=== PATIENT | female | born 1960 | race Caucasian/White ===

== ENCOUNTER → 2017-02-22 | Outpatient (CLI) | payer BC | END | disposition home or self-care (01) | LOC: C.PAPS 14:31 | PROVIDERS: ATTEND Obstetrics & Gynecology | DX: N95.2 Postmenopausal atrophic vaginitis (principal) ==

== ENCOUNTER → 2017-09-02 | Outpatient (CLI) | payer BC ==
--- NOTE | 2017-09-05 15:19 | MAMMOGRAPHY REPORT ---
BILATERAL DIGITAL SCREENING MAMMOGRAM TOMOSYNTHESIS WITH CAD: 09/02/2017 CLINICAL HISTORY: Routine screening. TECHNIQUE: Breast tomosynthesis in addition to standard 2D mammography was performed. Current study was also evaluated with a Computer Aided Detection (CAD) system. COMPARISON: Comparison is made to exams dated: 08/31/2016 mammogram, 08/25/2015 mammogram, 4 mammogram, 08/21/2013 mammogram, 05/19/2011 mammogram, and 01/26/2010 mammogram - [facility]. BREAST COMPOSITION: There are scattered areas of fibroglandular density in both breasts. FINDINGS: There is a focal asymmetry with associated calcifications in the left upper inner quadrant posteriorly measuring at least 15 mm in size, for which spot compression tomosynthesis views, spot m agnification views, and possible breast ultrasound are recommended for further evaluation. The remainder of both breasts are stable compared to prior exams, without suspicious masses, calcific ations, or areas of architectural distortion noted. There are stable changes from bilateral reductio n mammoplasty. Other scattered benign-appearing calcifications and bilateral nodularity are not sign ificantly changed. 2 adjacent biopsy marker clips are again noted within the right upper inner quadr ant. IMPRESSION: ACR BI-RADS CATEGORY 0: INCOMPLETE EVALUATION: NEED ADDITIONAL IMAGING EVALUATION Left breast asymmetry and associated calcifications, for which additional imaging evaluation is recom mended. The patient will be called to schedule an appointment. Approximately 10% of breast cancers are not detected with mammography. A negative mammographic report should not delay biopsy if a clinically suggestive mass is present. Casandra Sinha M.D. ah/:09/02/2017 16:18:46 Chief Airline Radio Operator: Thomas Harman RT(R)(M), [facility] [address] [facility] letter sent: Addl Imaging 0 BI-RADS Code: ACR BI-RADS Category 0: Incomplete Evaluation: Need Additional Imaging Evaluation
== END | disposition home or self-care (01) ==
LOC: C.MAMM 13:25
PROVIDERS: ATTEND Obstetrics & Gynecology
DX: Z12.31 Encounter for screening mammogram for malignant neoplasm of breast (principal); N64.9 Disorder of breast, unspecified; R92.0 Mammographic microcalcification found on diagnostic imaging of breast

== ENCOUNTER → 2017-09-14 | Outpatient (CLI) | payer BC ==
--- NOTE | 2017-09-14 16:03 | MAMMOGRAPHY REPORT ---
UNILATERAL LEFT DIGITAL DIAGNOSTIC MAMMOGRAM AND TARGETED LEFT ULTRASOUND: 09/14/2017 CLINICAL HISTORY: 57-year-old woman with a history of bilateral reduction mammoplasty called back fro m screening mammography for an asymmetry with associated microcalcifications in the upper inner poste rior left breast. TECHNIQUE: Spot magnification left CC and ML views were obtained. COMPARISON: Comparison is made to exams dated: 09/02/2017 mammogram, 08/31/2016 mammogram, 08/25/2015 mammogram, 08/22/2014 mammogram, 08/21/2013 mammogram, and 05/19/2011 mammogram - [facility]. BREAST COMPOSITION: There are scattered areas of fibroglandular density in the left breast. FINDINGS: The spot magnification views of the left breast demonstrate a grouping of round and puncta te Branden calcifications spanning approximately 18 mm in the upper inner far posterior left breast, w ith associated lobulated focal asymmetry. The microcalcifications have increased comparing to prior mammograms although the asymmetry appears somewhat similar to prior mammograms. Further evaluation w ith ultrasound was performed. Targeted ultrasound was performed in the upper inner quadrant of the left breast. In the 11:00 axis, 7 cm from the nipple, there is a parallel multilobulated hypoechoic and anechoic solid versus cystic mass with internal punctate reflectors likely representing the calcification seen mammographically. Accurate measurements are difficult to obtain on ultrasound but the area of lobulations measures james roximately 22.8 x 3.9 x 14.0 mm. This could represent focal fibrocystic change although DCIS cannot be completely excluded given the increasing microcalcifications. Definitive characterization with an ultrasound-guided core biopsy is recommended. IMPRESSION: ACR BI-RADS CATEGORY 4: SUSPICIOUS, TARGETED ULTRASOUND ACR BI-RADS CATEGORY 4: SUSPICIO US 1. Ultrasound-guided core needle biopsy is recommended for an indeterminate multilobulated 22 mm hyp oechoic and anechoic mass with associated grouped microcalcification in the 11:00 left breast, 7 cm f rom the nipple. This correlates with the mammographic findings of a focal asymmetry with associated calcification seen in the left breast. Specimen radiography would also be useful to ensure inclusion of the microcalcifications within the samples. These results and recommendations were discussed with the patient at the time of the exam. She will call our office to schedule the appointment after the holidays. Approximately 10% of breast cancers are not detected with mammography. A negative mammographic report should not delay biopsy if a clinically suggestive mass is present. Jeni Louie M.D. ay/:09/14/2017 11:18:29 Quantity Surveyor: Thomas FRAGOSO)(Tuyet), [facility] letter sent: Abnormal 4/5 BI-RADS Code: ACR BI-RADS Category 4: Suspicious Ultrasound BI-RADS: ACR BI-RADS Category 4: Suspici ous
== END | disposition home or self-care (01) ==
LOC: C.MAMM 09:23
PROVIDERS: ATTEND Obstetrics & Gynecology
DX: R92.0 Mammographic microcalcification found on diagnostic imaging of breast (principal); N64.89 Other specified disorders of breast

== ENCOUNTER → 2017-10-26 | Outpatient (CLI) | payer BC ==
--- NOTE | 2017-10-26 14:17 | Discharge Instructions ---
Discharge Instructions Procedure Procedure Date: Oct 26, 2017. Reason for visit: Left Mass. Discharge Discharge Date: Oct 26, 2017. Discharge Diagnosis: status post breast biopsy Instructions Activity Recommendations: Additional Limitations (see below) Return to School/Work: no limitations Recommended Home Diet: No Limitations Provider Instructions: ACTIVITY RECOMMENDATIONS: * No lifting, pushing, pulling or exercising the affected side for three days. RETURN TO SCHOOL/WORK: * You may return to work/school after the procedure, but do not perform any strenuous activities for 24 to 48 hours. MEDICATIONS: * Tylenol (two 325 mg) every four to six hours if needed for mild pain (if not allergic to Tylenol). DIET: * Resume previous diet. SPECIAL CARE INSTRUCTIONS: * Keep biopsy site dry for 24 hours. May shower after 24 hours, but do not soak (bathe) incision. * May remove Tegaderm (plastic patch) tomorrow AFTER showering. * Leave the steri-strips on for one week. Allow the steri-strips to fall off by themselves. If not off after one week, you may remove them. You may place a Bandaid crosswise over the strips, if desired. * Apply ice 10 minutes on and 10 minutes off as needed. * Wear a bra at bedtime to sleep more comfortably for 2-3 days. * Your referring physician should have the results after approximately 5 to 7 business days. * Call for unusual bleeding, fever, drainage, etc or if you have any questions call during normal business hours or after hours call Dr Sinha, . FOLLOW UP VISIT: Follow-up with Referring Physician as scheduled. [employer] Recommendations: Call your doctor if: * Temperature above 101 degrees * Pain not relieved by pain medicine ordered * There is increased drainage or redness from any incision * You have any unanswered questions or concerns. Your Doctors Instructions noted above were prepared by provider Casandra Sinha. Patient Signature Section: Patient Instructions Signature Page Estefani Peter Patient (or Guardian) Signature/Date: I have read and understand the instructions given to me by my caregivers. Caregiver/RN/Doctor Signature/Date: The above-named patient and/or guardian has received patient instructions on this date. + Original Patient Signature Page (only) stays with chart. Please make copy for patient.
--- NOTE | 2017-10-26 15:38 | MAMMOGRAPHY REPORT ---
THIS REPORT HAS BEEN AMENDED. ULTRASOUND GUIDED BIOPSY LEFT BREAST: 10/26/2017 CLINICAL HISTORY: Left 11:00 breast mass with associated calcifications. PATIENT CONSENT: The procedure, risks and benefits were discussed with the patient and informed writt en consent was obtained. A timeout was performed immediately prior to the procedure. PROCEDURE DESCRIPTION: With ultrasound guidance, aseptic technique, and lidocaine as the local anesth etic (1% lidocaine to anesthetize the skin and 1% lidocaine with epinephrine to anesthetize the deepe r tissues), the mass of concern was sampled 3 times with a 14-gauge Achieve biopsy needle. Immediate ly thereafter, with ultrasound guidance, aseptic technique, and lidocaine as the local anesthetic, a metallic localizer clip was placed at the biopsy site. Direct pressure was applied to the site immed iately post procedure and hemostasis was achieved. Postprocedure unilateral mammograms were performe d to confirm placement of the clip in the expected location of the breast mass. A specimen radiograp h was also performed, which shows 1-2 possible faint calcifications within the samples. The patient tolerated the procedure without complication. She was given wound care instructions. The specimens w ere sent to pathology for analysis. COMPARISON: Comparison is made to exams dated: 09/14/2017 mammogram, 09/14/2017 ultrasound, 7 mammogram, 08/31/2016 mammogram, 08/25/2015 mammogram, and 08/22/2014 mammogram - [facility]. IMPRESSION: ULTRASOUND GUIDED BIOPSY Ultrasound guided core needle biopsy of the left 11:00 breast mass, with clip placement. The patient will receive pathology results from her referring provider. Pending benign pathology results, recom mend follow-up diagnostic tomosynthesis mammograms and possible ultrasound of the left breast in 6 mo nths. Casandra Sinha M.D. ah/:10/26/2017 14:20:43 Grab Setter: Lashay Johnson, [facility] AMENDMENT: 10/26/2017 Casandra Sinha M.D. The patient returned to the Breast Center later the same day after the biopsy, due to bleeding at the biopsy site. By the time patient returned to the breast center, she was having no further episodes of bleeding. She was noted to have bruising and mild swelling at the biopsy site. Ultrasound of the region showed mild heterogeneity of the superficial soft tissues without a focal hematoma evident. He r Steri-Strips and bandages were replaced, and she was told to call or return to the breast center if she had any further episodes of bleeding or other concerns.
--- NOTE | 2017-10-26 15:42 | MAMMOGRAPHY REPORT ---
UNILATERAL LEFT DIGITAL DIAGNOSTIC MAMMOGRAM TOMOSYNTHESIS: 10/26/2017 CLINICAL HISTORY: Status post left breast biopsy. TECHNIQUE: Breast tomosynthesis in addition to standard 2D mammography was performed. Postprocedura l left CC and ML tomosynthesis images including C views were obtained. COMPARISON: Comparison is made to exams dated: 10/26/2017 ultrasound biopsy, 09/14/2017 mammogram, ultrasound, 09/02/2017 mammogram, 08/31/2016 mammogram, and 08/25/2015 mammogram - [facility]. BREAST COMPOSITION: There are scattered areas of fibroglandular density in the left breast. FINDINGS: A new biopsy marker clip is seen at the site of the biopsied mass and calcifications in th e left 11:00 breast. No significant postbiopsy hematoma is seen. IMPRESSION: POST PROCEDURE IMAGING FOR MARKER PLACEMENT New biopsy marker clip status post left breast biopsy. Pathology results are pending. Pending benig n pathology results, recommend follow-up diagnostic tomosynthesis mammograms and possible ultrasound of the left breast in 6 months. Approximately 10% of breast cancers are not detected with mammography. A negative mammographic report should not delay biopsy if a clinically suggestive mass is present. Casandra Sinha M.D. /:10/26/2017 14:34:48 Stamp Pad Finisher: Lashay Johnson, [facility] BI-RADS Code: Post Procedure Imaging For Marker Placement
== END | disposition home or self-care (01) ==
LOC: C.MAMM 13:38
PROVIDERS: ATTEND Obstetrics & Gynecology
DX: N63.20 Unspecified lump in the left breast, unspecified quadrant (principal); N60.12 Diffuse cystic mastopathy of left breast; N64.9 Disorder of breast, unspecified

== ENCOUNTER → 2018-05-01 | Outpatient (CLI) | payer BC ==
--- NOTE | 2018-05-01 15:43 | MAMMOGRAPHY REPORT ---
UNILATERAL LEFT DIGITAL DIAGNOSTIC MAMMOGRAM TOMOSYNTHESIS WITH CAD: 05/01/2018 CLINICAL HISTORY: 58-year-old woman presents for follow-up in the left breast. She was initially note d to have a focal asymmetry and associated calcification in the upper inner posterior left breast for which a probable sonographic correlate was identified and ultimately biopsied with ultrasound gabbie gonzalez on 10/26/2017, which yielded benign pathology results. Although a calcification was felt to be note d within the specimen during biopsy, the pathology report did not comment on calcifications and the p ho presents for follow-up. She returned with a small amount of bleeding immediately after the bio psy but with no subsequent complications. TECHNIQUE: Left breast CC, MLO and exaggerated lateral CC 2D and tomosynthesis images; spot magnifica tion left CC and ML views were obtained. Current study was also evaluated with a Computer Aided Dete ction (CAD) system. COMPARISON: Comparison is made to exams dated: 10/26/2017 mammogram, 09/14/2017 mammogram, 09/02/2017 mammogram, 08/31/2016 mammogram, 08/25/2015 mammogram, and 10/26/2017 ultrasound biopsy - [facility]. BREAST COMPOSITION: There are scattered areas of fibroglandular density in left breast. FINDINGS: There is a ribbon-shaped biopsy marker clip in the upper inner posterior left breast, at th e site of recent benign biopsy. There is decreased lobulations involving the focal asymmetry, and ov erall decreased prominence of the focal asymmetry in the area of concern, confirming adequate tissue sampling. There are a few residual rounded punctate calcifications but overall decreased number of c alcifications comparing to prior spot magnification views, suggesting adequate sampling. No other ne w suspicious masses, calcifications, areas of architectural distortion or other suspicious findings a re identified throughout the remainder of the visualized left breast. IMPRESSION: ACR-BI-RADS CATEGORY 3: PROBABLY BENIGN There are expected postbiopsy changes in the left breast, with decreased lobulations involving the bi opsied asymmetry in the upper inner posterior breast, and also decreased number of calcifications at the biopsy site. Another short interval follow-up left diagnostic mammogram including spot magnifica tion views is recommended to ensure longer stability, given that the pathology report did not particu larly mention calcifications although the entire lesion appears benign and is less prominent comparin g to prior mammograms. At the time of next follow-up, annual right mammography will also be due. These results and recommendations were discussed with the patient at the time of the exam. Some breast cancers are not detected with mammography. A negative mammographic report should not katharine y biopsy if a clinically suggestive mass is present. Jeni Louie M.D. ay/:05/01/2018 12:41:51 Automotive Fuel Injection Servicer: RT Salvador(R)(M), [facility] letter sent: Follow Up Recommended 3 BI-RADS Code: ACR-BI-RADS Category 3: Probably Benign
== END | disposition home or self-care (01) ==
LOC: C.MAMM 10:38
PROVIDERS: ATTEND Obstetrics & Gynecology
DX: R92.8 Other abnormal and inconclusive findings on diagnostic imaging of breast (principal)